=== PATIENT | male | born 1980 ===

== ENCOUNTER 2018-04-04 18:58 | Emergency (ER) | payer OTHER ==
[2018-04-04 19:17] VITALS: RESP 20
--- NOTE | 2018-04-04 20:28 | C.PDOC ---
History Of Present Illness 37 year old male presents to the emergency department with complaints of fever, body aches, malaise, and nasal congestion for the last two days. Patient reports taking Tylenol OTC with no relief. He denies cough, vomiting, neck pain, abdominal pain, sick contact, and recent travel. Time Seen by Provider: 04/04/18 19:22 Chief Complaint (Nursing): Fever History Per: Patient History/Exam Limitations: no limitations Onset/Duration Of Symptoms: Days (2) Current Symptoms Are (Timing): Still Present Associated Symptoms: Fever, Myalgias, Nasal Congestion. denies: Cough, Vomiting, Other (abdominal pain) Past Medical History Vital Signs: Last Vital Signs Temp 100.5 F H 04/04/18 19:14 Pulse 122 H 04/04/18 19:14 Resp 20 04/04/18 19:14 BP 130/83 04/04/18 19:14 Pulse Ox 97 04/04/18 19:14 - Medical History PMH: No Chronic Diseases Surgical History: No Surg Hx Family History: States: No Known Family Hx - Social History Hx Alcohol Use: Yes Hx Substance Use: No Review Of Systems Except As Marked, All Systems Reviewed And Found Negative. Constitutional: Positive for: Fever, Malaise ENT: Positive for: Nose Congestion Respiratory: Negative for: Cough Gastrointestinal: Negative for: Vomiting, Abdominal Pain Musculoskeletal: Positive for: Other (body aches). Negative for: Neck Pain Physical Exam - Physical Exam Appears: Non-toxic, No Acute Distress Skin: Normal Color, Warm, Dry Head: Atraumatic, Normacephalic Eye(s): bilateral: Normal Inspection, PERRL, EOMI Ear(s): Bilateral: Normal Nose: Normal Oral Mucosa: Moist Throat: Normal, No Erythema, No Exudate Neck: Normal, Supple Chest: Symmetrical, No Tenderness Cardiovascular: Rhythm Regular, No Murmur Respiratory: Normal Breath Sounds, No Rales, No Rhonchi, No Wheezing Gastrointestinal/Abdominal: Soft, No Tenderness, No Guarding, No Rebound Extremity: Normal ROM Neurological/Psych: Oriented x3, Normal Speech, Normal Cognition ED Course And Treatment O2 Sat by Pulse Oximetry: 97 (RA) Pulse Ox Interpretation: Normal Progress Note: Motrin 800mg PO. Tamiflu 75mg PO. Pt in no acute distress, will prescribe tamiflu, nsaids, return precautions were discussed Disposition Counseled Patient/Family Regarding: Diagnosis, Need For Followup, Rx Given - Disposition Referrals: [facility] [Outside] Disposition: HOME/ ROUTINE Disposition Time: 20:27 Condition: STABLE Additional Instructions: Increase PO fluids Bed rest Take medications as directed Return to ER if worse Prescriptions: Cetirizine HCl [Zyrtec] 10 mg PO DAILY #14 capsule Ibuprofen [Motrin] 600 mg PO Q6H #30 tab Oseltamivir Cap [Tamiflu] 75 mg PO BID #10 cap Instructions: Flu, Adult (DC) Forms: [employer] (Armenian) - Clinical Impression Clinical Impression: Influenza-like illness - PA / PATHOLOGY LABORATORY AIDE / Resident Statement MD/DO has reviewed & agrees with the documentation as recorded. - Scribe Statement The provider has reviewed the documentation as recorded by the Scribe (Paolo Tyler) All medical record entries made by the Scribe were at my direction and personally dictated by me. I have reviewed the chart and agree that the record accurately reflects my personal performance of the history, physical exam, medical decision making, and the department course for this patient. I have also personally directed, reviewed, and agree with the discharge instructions and disposition.
[2018-04-04 20:32] VITALS: BP 126/88; PULSE 119; TEMP 101.5
[2018-04-04 21:01] VITALS: O2SAT 97
== END 2018-04-04 21:04 | disposition home or self-care (01) ==
LOC: C.ER 18:58
DX: J11.1 Influenza due to unidentified influenza virus with other respiratory manifestations (principal)